=== PATIENT | female | born 1985 | race Caucasian/White ===

== ENCOUNTER → 2016-06-26 | Outpatient (CLI) | payer BC | END | disposition home or self-care (01) | LOC: GMAB 16:37 | PROVIDERS: ATTEND Family Medicine | DX: R10.13 Epigastric pain (principal); R56.9 Unspecified convulsions; R11.2 Nausea with vomiting, unspecified; F50.02 Anorexia nervosa, binge eating/purging type ==

== ENCOUNTER → 2016-12-04 | Outpatient (CLI) | payer BC | END | disposition home or self-care (01) | LOC: GMAB 14:10 | PROVIDERS: ATTEND Family Medicine | DX: R11.2 Nausea with vomiting, unspecified (principal) ==

== ENCOUNTER → 2017-01-03 | Outpatient (CLI) | payer BC ==
--- NOTE | 2017-01-04 10:18 | NM ---
EXAM DESCRIPTION: Gastric Emptying Study NUCLEAR MEDICINE GASTRIC EMPTYING 4 HOUR CLINICAL HISTORY: Dysphagia, unspecified COMPARISON: None FINDINGS: Patient was fed 0.5 mCi technetium 99m sulfur colloid mixed with scrambled eggs, using the standard meal. Percent gastric retention is as follows: 1 hour: 74% (normal equals 30-90%) 2 hour: 41% (upper limit of normal is 60%) 3 hour: 26% (upper limit of normal is 30%) 4 hour: 9% (upper limit of normal is 10%) Gastric emptying half-time is not identified, as time-activity graph was not utilized. IMPRESSION: Normal gastric emptying. Electronically signed by: Kareem Brown MD 01/04/2017 10:17 AM CDT
== END ==
LOC: NM 08:00
PROVIDERS: ATTEND Internal Medicine Gastroenterology
DX: R13.10 Dysphagia, unspecified (principal)
CPT/HCPCS: 78264; A9541

== ENCOUNTER → 2017-08-15 | Outpatient (CLI) | payer BC | LOC: GMAB 14:22 | PROVIDERS: ATTEND Family Medicine | DX: R30.0 Dysuria (principal) ==

== ENCOUNTER 2018-01-20 20:08 | Emergency (ER) | payer BC ==
[2018-01-20] MEDS ORDERED: LIDOCAINE 1% 10 ML VIAL INJ ONE (20:18)
[2018-01-20] MEDS ORDERED: CHLORHEXIDINE GLUCONATE 4 % 15 ML UD TOP ONE (20:18)
[2018-01-20 20:36] VITALS: BP 118/67; TEMP 99.6; O2SAT 99
[2018-01-20] MEDS ORDERED: SULFA/TRIMETH 800/160 (DS) TAB 1 EA TAB PO ONE (20:48)
--- NOTE | 2018-01-20 20:51 | ED.PDOC ---
History of Present Illness - General Chief Complaint: Laceration Stated Complaint: right hand laceration Time Seen by Provider: 01/20/18 20:09 Source: patient Exam Limitations: no limitations - History of Present Illness Initial Comments: the patient is a 32-year-old female presenting to the emergency room after sustaining a laceration to her right hand from a piece of glass. The patient has a C-shaped laceration over the left knuckle of the right hand. It does not extend down into the joint space nor does it affecting the attendance. Sensation appears to be intact distally. She is neurovascularly intact. No other injuries. This occurred less than 20 minutes prior to arrival. Timing/Duration: 1/2 hour Severity: mild Improving Factors: nothing Worsening Factors: nothing Associated Symptoms: denies symptoms Allergies/Adverse Reactions: Allergies NO KNOWN ALLERGY Allergy (Verified 01/20/18 20:36) Home Medications: Ambulatory Orders [facility] Carbonate 600 mg PO WOOD-OTH-DAY 10/27/13 Venlafaxine Xr [Effexor Xr] 300 mg PO WOOD-OTH-DAY 10/27/13 Zonisamide [Zonegran] 400 mg PO WOOD-OTH-DAY 10/27/13 Sulfa/Trimeth 800/160 (Ds) Tab [Bactrim DS Tab] 1 ea PO BID #6 tab 01/20/18 Review of Systems - Review of Systems Constitutional: States: no symptoms reported EENTM: States: no symptoms reported Respiratory: States: no symptoms reported Cardiology: States: no symptoms reported Gastrointestinal/Abdominal: States: no symptoms reported Genitourinary: States: no symptoms reported Musculoskeletal: States: no symptoms reported Skin: States: see HPI Neurological: States: no symptoms reported Endocrine: States: no symptoms reported All other Systems: No Change from Baseline Past Medical History (General) - Patient Medical History Hx Seizures: Yes - epilepsy Hx Stroke: No Hx Dementia: No Hx Asthma: No Hx of COPD: No Hx Cardiac Disorders: No Hx Congestive Heart Failure: No Hx Pacemaker: No Hx Hypertension: No Hx Thyroid Disease: No Hx Diabetes: No Hx Gastroesophageal Reflux: No Hx Renal Disease: No Hx Cancer: No Hx of HIV: No Hx Hepatitis C: No Hx MRSA: No Surgical History: no surgical history - Vaccination History Hx Influenza Vaccination: Yes - Social History Hx Tobacco Use: Yes Hx Alcohol Use: No Hx Depression: Yes - Female History Patient : No Family Medical History - Family History Mother Family History: Unknown Physical Exam - Physical Exam General Appearance: Alert, Comfortable, No apparent distress Eye Exam: bilateral normal Ears, Nose, Throat: hearing grossly normal Neck: full range of motion Respiratory: no respiratory distress, no accessory muscle use Cardiovascular/Chest: normal peripheral pulses, no edema Peripheral Pulses: radial,right: 2+, radial,left: 2+ Rectal Exam: deferred Back Exam: normal inspection Extremity: normal range of motion, no pedal edema, normal capillary refill Neurologic: adding machine mechanic II-XII nml as tested, no motor/sensory deficits, alert, normal mood/affect, oriented x 3 Skin Exam: normal color - laceration as above. c shaped laceration is approximately three quarters of an inch in diameter Comments: Vital Signs - 24 hr 01/20/18 20:15 Temperature 99.6 F Pulse Rate [ 96 H monitor] Respiratory 16 Rate Blood Pressure 118/67 [Left Arm] O2 Sat by Pulse 99 Oximetry Progress - Progress Progress: 01/20/18 20:51 the patient's a 32-year-old female presenting to emergency room secondary to sustaining a laceration over her fifth knuckle of the right hand due to glass. risk and benefits of repair were explained. Patient agreed to proceed. Wound was cleaned with peroxide. Lidocaine without epinephrine was used 2 cc for local anesthetic. 6 simple sutures of 4-0 Ethilon were used to reapproximation. Patient tolerated the repair well. Steri-Strips were applied for added strength is the laceration is over the joint. The patient believes she has had a tetanus shot within the last 5 years. The patient was given a dose of Bactrim and a prescription for 3 days additionally if she sees any redness in the wound. She is to keep the wound dry for at least the next 24 hours. After that she can wash daily or more with antibacterial soap and water. Sutures need to come out in approximately 10 days. She can expect some scarring over the area. ER warnings were given. Departure - Departure Clinical Impression: Accidental laceration Disposition: Discharge to Home or Self Care Condition: Fair Departure Forms: ED Discharge - Pt. Copy, Patient Portal Self Enrollment Instructions: DI for Laceration Repair, DI for Laceration Repair -- Simple Diet: regular diet Activity: increase activity as tolerated Referrals: Deion Kate MD [Primary Care Provider] - 1-2 Weeks Prescriptions: Sulfa/Trimeth 800/160 (Ds) Tab [Bactrim DS Tab] 1 ea PO BID #6 tab Home Medications: Ambulatory Orders [facility] Carbonate 600 mg PO WOOD-OTH-DAY 10/27/13 Venlafaxine Xr [Effexor Xr] 300 mg PO WOOD-OTH-DAY 10/27/13 Zonisamide [Zonegran] 400 mg PO WOOD-OTH-DAY 10/27/13 Sulfa/Trimeth 800/160 (Ds) Tab [Bactrim DS Tab] 1 ea PO BID #6 tab 01/20/18 Additional Instructions: the patient's a 32-year-old female presenting to emergency room secondary to sustaining a laceration over her fifth knuckle of the right hand due to glass. risk and benefits of repair were explained. Patient agreed to proceed. Wound was cleaned with peroxide. Lidocaine without epinephrine was used 2 cc for local anesthetic. 6 simple sutures of 4-0 Ethilon were used to reapproximation. Patient tolerated the repair well. Steri-Strips were applied for added strength is the laceration is over the joint. she should try to avoid flexing the joint for the next week or 2 to allow the healing to complete. The patient believes she has had a tetanus shot within the last 5 years. The patient was given a dose of Bactrim and a prescription for 3 days additionally if she sees any redness in the wound. She is to keep the wound dry for at least the next 24 hours. After that she can wash daily or more with antibacterial soap and water. Sutures need to come out in approximately 10 days. She can expect some scarring over the area. ER warnings were given.
== END 2018-01-20 21:08 | disposition home or self-care (01) ==
LOC: ER 20:08
DX: S61.411A Laceration without foreign body of right hand, initial encounter (principal); G40.909 Epilepsy, unspecified, not intractable, without status epilepticus; F32.9 Major depressive disorder, single episode, unspecified; Z87.891 Personal history of nicotine dependence; W25.XXXA Contact with sharp glass, initial encounter; Y92.9 Unspecified place or not applicable; Y93.G1 Activity, food preparation and clean up

== ENCOUNTER → 2018-08-19 | Outpatient (CLI) | payer BC | LOC: GMAE 14:37 | PROVIDERS: ATTEND Family Medicine | DX: Z00.00 Encounter for general adult medical examination without abnormal findings (principal) ==

== ENCOUNTER → 2019-10-13 | Outpatient (CLI) | payer BC | LOC: MAMMO 14:27 | PROVIDERS: ATTEND Obstetrics & Gynecology | DX: Z12.31 Encounter for screening mammogram for malignant neoplasm of breast (principal) ==